=== PATIENT | female | born 1975 | race Caucasian/White ===

== ENCOUNTER 2018-02-07 10:42 | Inpatient (IN) | payer OTHER ==
[2018-02-07] VITALS (11 sets, daily range): BP systolic 90–176; BP diastolic 51–92
[~2018-02-07] VITALS: Ht 157.5 cm; Wt 54.4 kg
[~2018-02-07 10:42] MED LIST: TRAMADOL HCL100 M2 ORAL; ceFAZolin 1gm in D5W 55ml IVP SCH; celeBREX 200mg Cap **SURGERY PATIENTS ONLY ORAL SCH; oxyCONTIN 20mg tab ORAL SCH
[2018-02-07] MEDS ORDERED: celeBREX 200mg Cap **SURGERY PATIENTS ONLY ORAL ONE (11:24)
[2018-02-07] MEDS ORDERED: oxyCONTIN 20mg tab ORAL ONE (11:24)
[2018-02-07] MEDS ORDERED: Milk of Magnesia 30ml Ud ORAL PRN (11:30)
--- NOTE | 2018-02-07 11:30 | Operative Note - PDOC ---
Operative Note Operative Note Pre-op Diagnosis: right hip oa Procedure: r merary Post-op Diagnosis: same as pre-op plus Operative Findings: consistent w/pre-op dx studies Anesthesia: regional Specimen: none Complications: none Condition: stable Estimated Blood Loss: none Implant(s) used?: Yes Dustin Sifuentes MD Feb 07, 2018 11:30
--- NOTE | 2018-02-07 11:30 | Pre-Procedure Note/Attestation ---
Pre-Procedure Note/Attestation Complete Prior to Procedure Planned Procedure: right Procedure Narrative: merary Indications for Procedure Pre-Operative Diagnosis: right hip oa Attestation I attest that I discussed the nature of the procedure; its benefits; risks and complications; and alternatives (and the risks and benefits of such alternatives ), prior to the procedure, with the patient (or the patient's legal door to door sales representative). I attest that, if there was a reasonable possibility of needing a blood transfusion, the patient (or the patient's legal door to door sales representative) was given the [facility] standardized written summary, pursuant to the Michael Thai Blood Safety Act ([place] Health and Safety Code # 1645, as amended). I attest that I re-evaluated the patient just prior to the surgery and that there has been no change in the patient's H&P, except as documented below: Dustin Sifuentes MD Feb 07, 2018 11:30
[2018-02-07] MEDS ORDERED: Sterile Water Irrig 1000ml IRRIG ONE (14:30)
[2018-02-07] MEDS ORDERED: NS Irrig 1000ml ONE (14:30)
[2018-02-07] MEDS ORDERED: NS Irrig 2000ml IRRIG ONE (14:30)
[2018-02-07] MEDS ORDERED: LR 1000ml ONE (14:30)
[2018-02-07] MEDS ORDERED: Tranexamic Acid 1,000 MG in NS 65 ML IVPB SCH (14:31)
[2018-02-07] MEDS ORDERED: fentaNYL 100 mcg/2 mL IV ONE (14:33)
[2018-02-07] MEDS ORDERED: Morphine Sulfate PF 10 ML ONE ×2 (14:33→14:34)
[2018-02-07] MEDS ORDERED: Kenalog-40 1ml Vial ONE (14:34)
[2018-02-07] MEDS ORDERED: EPINEPHrine 1mg/1ml Amp ONE (14:34)
[2018-02-07] MEDS ORDERED: Ketorolac 30mg Inj ONE (14:35)
[2018-02-07] MEDS ORDERED: NeoSporin Gu Irrig 1ml Amp IRRIG ONE (14:35)
[2018-02-07] MEDS ORDERED: Bacitracin 50000 Units Vial ONE (14:35)
[2018-02-07] MEDS ORDERED: Bupivacaine 0.5% Inj 30 ml vial INJ ONE ×2 (14:35→14:51)
[2018-02-07] MEDS ORDERED: Duramorph PF 10mg/10ml amp IV ONE (15:10)
[2018-02-07] MEDS ORDERED: Propofol 200mg/20ml IV ONE (15:51)
[2018-02-07] MEDS ORDERED: Metoclopramide 10mg/2ml Inj ONE (15:51)
[2018-02-07] MEDS ORDERED: Acetaminophen (Non formulary) 100 ML IV ONE (16:00)
[2018-02-07] MEDS ORDERED: fentaNYL 100 mcg/2 mL IV PRN (16:00)
--- NOTE | 2018-02-07 16:11 | Anethesia Preoperative Eval ---
Anesthesia Pre-op PMH/ROS General Date of Evaluation: Feb 07, 2018 Time of Evaluation: 14:20 Anesthesiologist: jacoby ASA Score: ASA 1 Mallampati Score Class I : Soft palate, uvula, fauces, pillars visible Class II: Soft palate, uvula, fauces visible Class III: Soft palate, base of uvula visible Class IV: Only hard plate visible Mallampati Classification: Class II Anesthesia History: none Family History: no anesthesia problems Allergies: Coded Allergies: LATEX (Verified Allergy, Severe, 02/06/18) BURNING IN THE SKIN AVOCADO (Verified Allergy, Intermediate, 02/07/18) ITCHING Medications: see eMAR Past Medical History Cardiovascular: Denies: HTN, CAD, ND, valve dz, arrhythmia, other Pulmonary: Denies: asthma, COPD, FRANK, other Gastrointestinal/Genitourinary: Denies: GERD, CRI, ESRD, other Neurologic/Psychiatric: Denies: dementia, CVA, depression/anxiety, TIA, other Endocrine: Denies: DM, hypothyroidism, steroids, other HEENT: Denies: cataract (L), cataract (R), glaucoma, [place] (L), [place] (R), other Hematology/Immune: Denies: anemia, DVT, bleeding disorder, other Musculoskeletal/Integumentary: Reports: OA; Denies: RA, DJD, DDD, edema, other PSxH Narrative: ovarian cystectomy Anesthesia Pre-op Phys. Exam Physician Exam Last Vital Signs Date Time Temp Pulse Resp B/P (MAP) Pulse Ox O2 Delivery O2 Flow Rate FiO2 02/07/18 11:25 98.0 57 18 128/67 (87) 98 98.0 02/07/18 11:09 Room Air Constitutional: NAD Neurologic: CN 2-12 intact Cardiovascular: RRR Respiratory: CTA Gastrointestinal: S/NT/ND Airway Exam Mallampati Classification 2 Mallampati Score: Class II MO: full ROM: full Dentures: no upper, no lower Anesthesia Pre-op A/P Labs Urine Test Test 02/07/18 10:45 Urine HCG, Qualitative Negative (NEGATIVE) Studies Pre-op Studies: EKG - SR Risk Assessment & Plan Assessment: denies changes in health Plan: SAB Status Change Before Surgery: Yes Pre-Antibiotics Drug: ancef Given Within 1 Hr of Incision: Yes Time Given: 15:00 Tarrillion,Farrah Nichols [employer]ED [employer] GUARD Feb 07, 2018 16:11
[2018-02-07] MEDS ORDERED: LORazepam Inj 2mg/ml 1ml ONE (17:26)
--- NOTE | 2018-02-07 17:35 | Immediate Post-Op Evaluation ---
Immediate Post-Op Evalulation Immediate Post-Op Evalulation Procedure: right hip arthroplasty Date of Evaluation: Feb 07, 2018 Time of Evaluation: 17:20 IV Fluids: 1500 Blood Products: 0 Estimated Blood Loss: 1000 Urinary Output: 150 Blood Pressure Systolic: 150 Blood Pressure Diastolic: 60 Pulse Rate: 80 Respiratory Rate: 14 O2 Sat by Pulse Oximetry: 100 Temperature (Fahrenheit): 97.4 Pain Score (1-10): 0 Nausea: No Vomiting: No Complications none Patient Status: awake, reacts, patent Hydration Status: adequate Drug: ancef Given Within 1 Hr of Incision: Yes Time Given: 15:00 Farrah Contreras CRNA Feb 07, 2018 17:35
--- NOTE | 2018-02-07 17:42 | 48 Hour Post Anesthesia Eval ---
Post Anesthesia Evaluation Procedure: right hip arthroplasty Date of Evaluation: Feb 07, 2018 Time of Evaluation: 19:10 Blood Pressure Systolic: 132 0: 71 Pulse Rate: 80 Respiratory Rate: 14 Temperature (Fahrenheit): 98.2 O2 Sat by Pulse Oximetry: 100 Airway: patent Nausea: No Vomiting: No Pain Intensity: 2 Hydration Status: adequate Cardiopulmonary Status: Stable Mental Status/LOC: patient returned to baseline Follow-up Care/Observations: 0 Post-Anesthesia Complications: 0 Follow-up care needed: N/A Seng Oliveira MD Feb 07, 2018 17:42
[2018-02-07] MEDS ORDERED: LORazepam Inj 2mg/ml 1ml IV PRN (17:45)
[2018-02-07] MEDS ORDERED: LORazepam Inj 2mg/ml 1ml IV ONE (18:10)
[2018-02-07] MEDS ORDERED: Morphine Sulfate 2mg/ml Inj(IV/IM USE ONLY) IVP PRN (19:30)
--- NOTE | 2018-02-07 20:17 | Diagnostic Imaging Report ---
EXAM: XR Pelvis, 1 or 2 Views CLINICAL HISTORY: POST-OP TECHNIQUE: Frontal view of the pelvis. COMPARISON: 02/07/2018 1531 FINDINGS: Bones/joints: Right hip arthroplasty. Orthopedic hardware appears intact and there is near-anatomic alignment. Soft tissue gas the right hip is likely postsurgical. No acute fracture. Soft tissues: Unremarkable. Tubes, lines and devices: A catheter projects over the pelvis. IMPRESSION: Right hip arthroplasty. Orthopedic hardware appears intact and there is near-anatomic alignment.
[2018-02-07] MEDS: oxyCONTIN 20mg tab ORAL SCH (20:48)
[2018-02-07] MEDS: D5 1/2NS w/KCl 20mEq 1,000 ML IV SCH (21:21)
[2018-02-07] MEDS: ceFAZolin sod 2 GM in D5W 110 ML IV SCH (23:40)
[2018-02-08] VITALS: BP 99/67
[2018-02-08] MEDS: Morphine Sulfate 4mg/ml Inj (IV USE ONLY) IVP PRN ×4 (03:42→21:12)
[2018-02-08 04:00] VITALS: BP 99/62
[2018-02-08] MEDS: ceFAZolin sod 2 GM in D5W 110 ML IV SCH (06:04)
[2018-02-08 08:00] VITALS: BP 96/63
[2018-02-08] MEDS: Docusate 100mg cap ORAL SCH ×3 (09:12→18:18)
[2018-02-08] MEDS: celeBREX 200mg Cap **SURGERY PATIENTS ONLY ORAL SCH (09:12)
[2018-02-08] MEDS: oxyCODONE 5mg IR tab ORAL PRN (09:12)
[2018-02-08] MEDS: D5 1/2NS w/KCl 20mEq 1,000 ML IV SCH ×2 (09:13→22:43)
[2018-02-08] MEDS: oxyCONTIN 20mg tab ORAL SCH ×2 (09:13→20:19)
[2018-02-08 12:29] VITALS: BP 108/64
[2018-02-08 16:00] VITALS: BP 113/68
[2018-02-08 20:00] VITALS: BP 118/74
[2018-02-09 00:12] VITALS: BP 97/70
[2018-02-09] MEDS: oxyCODONE 5mg IR tab ORAL PRN ×3 (02:21→15:36)
[2018-02-09 04:00] VITALS: BP 112/75
[2018-02-09] MEDS: D5 1/2NS w/KCl 20mEq 1,000 ML IV SCH (06:04)
[2018-02-09 08:00] VITALS: BP 118/69
[2018-02-09] MEDS: oxyCONTIN 20mg tab ORAL SCH (08:21)
[2018-02-09] MEDS: celeBREX 200mg Cap **SURGERY PATIENTS ONLY ORAL SCH (08:21)
[2018-02-09] MEDS: Docusate 100mg cap ORAL SCH ×2 (09:00→13:12)
[2018-02-09] MEDS ORDERED: traMADol 50mg tab ORAL PRN (10:45)
[2018-02-09] MEDS ORDERED: Ketorolac 30mg Inj IV SCH (10:45)
[2018-02-09 12:00] VITALS: BP 123/67
[2018-02-09 16:00] VITALS: BP 116/65
[2018-02-09] MEDS ORDERED: PERCOCET 10-321 EAC1 PO (17:00)
[2018-02-09] MEDS ORDERED: ASPIR-TRIN325 M1 ORAL (17:02)
[2018-02-09] MEDS ORDERED: NAPROXEN250 MG ORAL (17:04)
[2018-02-09] MEDS ORDERED: NEURONTIN100 MG ORAL (17:05)
--- NOTE | 2018-02-10 08:28 | Diagnostic Imaging Report ---
Indication: Intraoperative imaging during hip replacement surgery Technique: One view of the pelvis Comparison: 2 hours prior Findings: There is a right hip arthroplasty prosthesis in place, appearing well aligned. Retained air from the surgical exposure is seen within the soft tissues Impression: Postoperative right hip, no unusual features
--- NOTE | 2018-02-10 15:15 | Discharge Summary ---
Discharge Summary Hospital Course Date of Admission Feb 07, 2018 at 10:42 Date of Discharge Feb 09, 2018 at 17:42 Admitting Diagnosis right hip osteoarthritis Reason for Hospitalization: [id number] surgery HPI Nikole Jones is a 42 year old female who was admitted on Feb 07, 2018 at 10:42 for Right Hip Osteoarthritis. Patient was admitted for elective surgery. Procedures s/p 02/07/[address] Sifuentes right hip arthroplasty Hospital Course status post surgery course of recovery uneventful initially IV fluids until tolerated diet pain management addressed and provided SCD provided as a mechanical prophylaxis for DVT dressing changed as needed neurovascular status clsoely monitored patient was working with physical therapist patient was able to ambulate , fall precautions maintained use of incentive spirometry encouraged while in the bed when patient was able to tolerate diet, IV fluids discontinued voided freely bowel regimen instituted patient was stable for discharge home: neurovascular intact, pain controlled, dressing clean, dry and intact ;m tolerated diet , voided freely d/c instructions provided including hip precautions outpatient follow-up with surgeon as advised FINAL DIAGNOSES right hip osteoarthritis s/p right total hip arthroplasty Discharge Medications Continued Medications: Aspirin* (Aspir-Linda*) 325 Mg Tablet. 325 MG ORAL DAILY for 42 Days, #42 TAB (This prescription has been renewed) Gabapentin* (Neurontin*) 100 Mg Capsule 100 MG ORAL THREE TIMES A DAY, #90 CAP 0 Refills (This prescription has been renewed) Naproxen* (Naprosyn*) 250 Mg Tablet 500 MG ORAL TWICE A DAY, #60 TAB 0 Refills (This prescription has been renewed) Oxycodone HCl/Acetaminophen (Percocet 10-325 mg Tablet) 1 Each Tablet 1 EACH PO Q6HR PRN for For Pain, #30 TAB Discharge Condition Upon Discharge: stable Discharge Disposition Patient was discharged to Home () Discharge Instructions Discharge Instructions Special Instructions I have been assigned to complete a D/C Summary on this account. I was not involved in the patient management Sandi Bustamante NP Feb 10, 2018 15:15
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
== END 2018-02-09 17:42 | disposition home health service (06) | DRG 470 ==
LOC: SDSOVERFLO 10:42 → 3E 19:20
PROC: 0SR90JZ Replacement of Right Hip Joint with Synthetic Substitute, Open Approach (ICD-10-PCS; principal; 2018-02-07 15:45)
DX: M16.51 Unilateral post-traumatic osteoarthritis, right hip (principal); T14.90XS Injury, unspecified, sequela; X58.XXXS Exposure to other specified factors, sequela
CPT/HCPCS: 36415; 72170; 81025; 86850; 86900; 86901; 87081; 94003; 94150; J2405; J2765